=== PATIENT | female | born 1990 | race Caucasian/White ===

== ENCOUNTER 2016-05-24 05:31 | Day surgery (SDC) | payer OTHER ==
[~2016-05-24] VITALS: Ht 165.1 cm; Wt 81.3 kg
[~2016-05-24 05:31] MED LIST: Chromagen, Feogen, M PO; FIORICET WI1 CAPSULE PO; MOTRIN800 MG PO; Motrin PO; NORCO 7.5/321 TABLET PO; SPRINTEC1 EACH PO; VALIUM5 MG PO; ZOFRAN ODT4 MG PO; ~No Medications
[2016-05-24 05:58] VITALS: BP 105/65
[2016-05-24] MEDS ORDERED: MOTRIN800 MG PO (08:18)
[2016-05-24 09:23] VITALS: BP 118/76
[2016-05-24 10:33] VITALS: BP 110/77
[2016-05-24 11:23] VITALS: BP 111/72
== END 2016-05-24 11:20 | disposition home or self-care (01) ==
LOC: SDC 05:31
PROC: 0UL74CZ Occlusion of Bilateral Fallopian Tubes with Extraluminal Device, Percutaneous Endoscopic Approach (ICD-10-PCS; principal; 2016-05-24)
DX: Z30.2 Encounter for sterilization (principal); K76.0 Fatty (change of) liver, not elsewhere classified; F17.200 Nicotine dependence, unspecified, uncomplicated
CPT/HCPCS: J0330; J1100; J1170; J1885; J2250; J2405; J2710; J2765; J3010

== ENCOUNTER 2017-07-10 16:05 | Emergency (ER) | payer OTHER ==
[~2017-07-10] VITALS: Ht 165.1 cm; Wt 85.4 kg
[2017-07-10 18:53] LABS: HEMATOCRIT 41.1 % (36.0-46.0); HEMOGLOBIN 13.7 G/DL (11.9-15.5); MCH 30.9 PG (29.0-34.0); MCHC 33.3 G/DL (30.0-36.0); MCV 92.8 FL (83-99); PLATELET COUNT 259 K/uL (156-360); RBC DIS.WIDTH-CV 12.8 % (11.8-14.6); RBC DIS.WIDTH-SD 43.7 % (39-53); RED BLOOD COUNT 4.43 M/uL (3.80-5.20); WHITE BLOOD COUNT 10.2 K/uL (4.1-10.2)
[2017-07-10 18:57] LABS: CHLORIDE 107 mEq/L (99-109); SODIUM 140 mEq/L (136-147)
[2017-07-10 18:59] LABS: GLUCOSE 101 mg/dL (70-99)
[2017-07-10 19:02] LABS: CREATININE 0.7 mg/dL (0.6-1.3); GFR ESTIMATE (CALCULATED) > 59 mL/min/
[2017-07-10 19:03] LABS: UREA NITROGEN (BUN) 5 mg/dL (9-23)
[2017-07-10 19:11] LABS: QUANTITATIVE HCG < 4.0 MIU/ML
[2017-07-10 20:08] LABS: TROP-I INTERPRETATION NEGATIVE; TROPONIN-I < 0.01 ng/mL (0.0-0.30)
[2017-07-10 20:28] LABS: APPEARANCE CLEAR ((CLEAR)); BILIRUBIN NEGATIVE; BLOOD NEGATIVE; COLOR STRAW ((YELLOW)); GLUCOSE (STRIP) NEGATIVE; KETONES NEGATIVE; LEUKOCYTES NEGATIVE; NITRITE NEGATIVE; PROTEIN (STRIP) NEGATIVE; SPECIFIC GRAVITY 1.009 (1.000-1.030); UROBILINOGEN 0.2 MG/DL (0.2-1.0)
[2017-07-10 22:05] LABS: TROP-I INTERPRETATION NEGATIVE; TROPONIN-I < 0.01 ng/mL (0.0-0.30)
[2017-07-10 22:29] VITALS: BP 123/82
== END 2017-07-10 22:29 | disposition home or self-care (01) ==
LOC: EME 16:05
PROVIDERS: Physician Assistant; Physician Assistant Medical
DX: R55 Syncope and collapse (principal); M25.571 Pain in right ankle and joints of right foot; M79.671 Pain in right foot; F17.200 Nicotine dependence, unspecified, uncomplicated; W17.89XA Other fall from one level to another, initial encounter
CPT/HCPCS: 70450; 73610; 80048; 81003; 84484; 84702; 85027; 93005; 99281; 99284; J1885